=== PATIENT | female | born 1960 | race African-American/Black ===

== ENCOUNTER 2018-02-04 08:13 | Outpatient (CLI) | payer OTHER | END 2018-02-04 08:14 | disposition home or self-care (01) | LOC: BICMAMMO 08:13 | PROVIDERS: ATTEND Family Medicine | DX: Z12.31 Encounter for screening mammogram for malignant neoplasm of breast (principal); R92.1 Mammographic calcification found on diagnostic imaging of breast | CPT/HCPCS: 77066; G0279 ==

== ENCOUNTER 2018-12-04 07:32 | Outpatient (CLI) | payer OTHER ==
--- NOTE | 2018-12-04 10:26 | MRI ---
MRI LUMBAR SPINE WITHOUT IV CONTRAST: HISTORY: M54.42, lumbago with sciatica, left. Chronic low back pain that radiates to the buttocks, groin, and both legs. FINDINGS: The conus medullaris region is unremarkable, terminating at L1-L2. Disk bulging/disk osteophytosis c hanges at T11-T12 and T12-L1 with moderate indention of the ventral thecal sac and mild canal stenosi s without overt cord compression. At L1-L2, mild disk bulging and very slight lateral recess narrowing. At L2-L3, significant ligament and facet hypertrophic changes with marked diffuse bulging with modera te-severe central canal and bilateral recess stenosis and bilateral foraminal stenosis. At L3-L4, there is severe disk bulging and ligament and facet hypertrophic changes with severe centra l canal, lateral recess, and foraminal stenosis. At L4-L5, again, severe disk bulging and ligament and facet hypertrophic changes with severe central canal, lateral recess, and bilateral foraminal stenosis. At L5-S1, mild disk bulging without significant central canal stenosis. Mild bilateral foraminal milady nosis. No significant abnormal marrow signal. IMPRESSION: Variable severity, up to severe, central canal, lateral recess, and foraminal stenosis, particularly at L2-L3, L3-L4, and L4-L5, as well as disk bulging changes at T11-T12 and T12-L1, as above. POS: [facility]
== END 2018-12-04 07:33 | disposition home or self-care (01) ==
LOC: BICMRI 07:32
PROVIDERS: ATTEND Family Medicine
DX: M51.16 Intervertebral disc disorders with radiculopathy, lumbar region (principal); G89.29 Other chronic pain; M48.061 Spinal stenosis, lumbar region without neurogenic claudication; M51.9 Unspecified thoracic, thoracolumbar and lumbosacral intervertebral disc disorder
CPT/HCPCS: 72148

== ENCOUNTER 2019-02-06 09:31 | Outpatient (CLI) | payer OTHER ==
--- NOTE | 2019-02-06 09:57 | MMO ---
Bilateral MAMMO Bilat Screen [facility]. CLINICAL HISTORY: Patient is 58 years old and is seen for screening. The patient has no family history of breast cancer. The patient has no personal history of cancer. The patient has a history of left Excisional Biopsy in 1996 - benign. VIEWS: The views performed were: bilateral craniocaudal with tomosynthesis and bilateral mediolateral oblique with tomosynthesis. FILMS COMPARED: The present examination has been compared to prior imaging studies performed at [facility] on 01/27/2016, 01/28/2016, 07/31/2016, 02/01/2017 and 02/04/2018. MAMMOGRAM FINDINGS: The breasts are heterogeneously dense, which could obscure a lesion on mammography. There are stable benign appearing calcifications seen in both breasts. There are no suspicious masses, suspicious calcifications, or new areas of architectural distortion. IMPRESSION: THERE IS NO MAMMOGRAPHIC EVIDENCE OF MALIGNANCY. A ROUTINE FOLLOW-UP MAMMOGRAM IN 1 YEAR IS RECOMMENDED. THE RESULTS OF THIS EXAM WERE SENT TO THE PATIENT. ACR BI-RADS Category 2 - Benign finding MAMMOGRAPHY NOTE: 1. A negative mammogram report should not delay a biopsy if a dominant of clinically suspicious mass is present. 2. Approximately 10% to 15% of breast cancers are not detected by mammography. 3. Adenosis and dense breasts may obscure an underlying neoplasm.
== END 2019-02-06 09:32 | disposition home or self-care (01) ==
LOC: BICMAMMO 09:31
PROVIDERS: ATTEND Family Medicine
DX: Z12.31 Encounter for screening mammogram for malignant neoplasm of breast (principal)
CPT/HCPCS: 77063; 77067

== ENCOUNTER 2020-02-11 09:33 | Outpatient (CLI) | payer OTHER ==
--- NOTE | 2020-02-11 10:07 | MMO ---
Bilateral MAMMO Bilat Screen [facility]. CLINICAL HISTORY: Patient is 59 years old and is seen for screening. The patient has no family history of breast cancer. The patient has no personal history of cancer. The patient has a history of left Excisional Biopsy in 1996 - benign. VIEWS: The views performed were: bilateral craniocaudal with tomosynthesis and bilateral mediolateral oblique with tomosynthesis. FILMS COMPARED: The present examination has been compared to prior imaging studies performed at [facility] on 07/31/2016, 02/01/2017, 02/04/2018 and 02/06/2019. This study has been interpreted with the assistance of computer-aided detection. MAMMOGRAM FINDINGS: The breasts are heterogeneously dense, which could obscure a lesion on mammography. There are stable benign appearing calcifications seen in both breasts. There are no suspicious masses, suspicious calcifications, or new areas of architectural distortion. IMPRESSION: THERE IS NO MAMMOGRAPHIC EVIDENCE OF MALIGNANCY. A ROUTINE FOLLOW-UP MAMMOGRAM IN 1 YEAR IS RECOMMENDED. THE RESULTS OF THIS EXAM WERE SENT TO THE PATIENT. ACR BI-RADS Category 2 - Benign finding MAMMOGRAPHY NOTE: 1. A negative mammogram report should not delay a biopsy if a dominant of clinically suspicious mass is present. 2. Approximately 10% to 15% of breast cancers are not detected by mammography. 3. Adenosis and dense breasts may obscure an underlying neoplasm. Reported by: RENETTA RAJPUT MD Electonically Signed: [id number]
== END 2020-02-11 09:34 | disposition home or self-care (01) ==
LOC: BICMAMMO 09:33
PROVIDERS: ATTEND Family Medicine
DX: Z12.31 Encounter for screening mammogram for malignant neoplasm of breast (principal); Z91.89 Other specified personal risk factors, not elsewhere classified
CPT/HCPCS: 77063; 77067

== ENCOUNTER 2020-12-22 07:57 | Outpatient (CLI) | payer OTHER | END 2020-12-22 07:58 | disposition home or self-care (01) | LOC: TBSIIMAG 07:57 | PROVIDERS: ATTEND Neurological Surgery | DX: M47.26 Other spondylosis with radiculopathy, lumbar region (principal) | CPT/HCPCS: 72148 ==

== ENCOUNTER 2021-01-25 15:31 | Outpatient (CLI) | payer OTHER ==
[2021-01-26 07:38] LABS: SARS-CoV-2 PCR by NAA Not Detected (NotDetected)
== END 2021-01-25 15:32 | disposition home or self-care (01) ==
LOC: LABBT 15:31
PROVIDERS: ATTEND Neurological Surgery
DX: Z01.818 Encounter for other preprocedural examination (principal); Z20.822 Contact with and (suspected) exposure to COVID-19; M48.061 Spinal stenosis, lumbar region without neurogenic claudication
CPT/HCPCS: 87635; 93005; 93010; U0003; U0005

== ENCOUNTER 2021-01-28 05:30 | Day surgery (SDC) | payer OTHER ==
[2021-01-27 11:06] VITALS: BMI 34.7
[2021-01-28] MEDS ORDERED: Midazolam HCl 2 mg/2 ml Vial ONE (08:13)
[2021-01-28] MEDS ORDERED: Bupivacaine PF 0.5% 30 ML VIAL ONE (08:26)
[2021-01-28] MEDS ORDERED: EPINEPHrine 1 MG/ML AMP ONE (08:26)
[2021-01-28] MEDS ORDERED: Fentanyl 100 MCG/2 ML VIAL ONE ×4 (09:11→11:58)
[2021-01-28] MEDS ORDERED: Dexamethasone 20 MG/5 ML VIAL ONE (09:27)
[2021-01-28] MEDS ORDERED: Ondansetron PF 4 MG/2 ML Vial ONE (09:27)
[2021-01-28] MEDS ORDERED: Rocuronium Bromide 10 MG/ML (10ML VIAL) ONE (09:27)
[2021-01-28] MEDS ORDERED: ePHEDrine Sulfate 50 MG/10 ML VIAL ONE (09:27)
[2021-01-28] MEDS ORDERED: PROPOFOL 200 MG/20 ML VIAL ONE (09:27)
[2021-01-28] MEDS ORDERED: Ketorolac Tromethamine 30 MG/ML VIAL ONE (09:27)
[2021-01-28] MEDS ORDERED: Glycopyrrolate 0.2 MG/ML 5 ML SYRINGE ONE (09:27)
[2021-01-28] MEDS ORDERED: Lidocaine 1% PF 5 ML VIAL ONE (09:27)
[2021-01-28] MEDS ORDERED: HYDROcodone/Acetaminophen 5/325 mg Tablet ONE (12:02)
== END 2021-01-28 15:45 | disposition home or self-care (01) ==
LOC: SDC 05:30
PROVIDERS: ATTEND Neurological Surgery
PROC: 01NB0ZZ Release Lumbar Nerve, Open Approach (ICD-10-PCS; principal; 2021-01-28)
DX: M48.062 Spinal stenosis, lumbar region with neurogenic claudication (principal); M54.16 Radiculopathy, lumbar region; E78.00 Pure hypercholesterolemia, unspecified; G89.29 Other chronic pain; E11.9 Type 2 diabetes mellitus without complications; I10 Essential (primary) hypertension; M19.90 Unspecified osteoarthritis, unspecified site; F17.210 Nicotine dependence, cigarettes, uncomplicated; Z79.899 Other long term (current) drug therapy; Z88.1 Allergy status to other antibiotic agents; Z88.8 Allergy status to other drugs, medicaments and biological substances
CPT/HCPCS: 76000; J0171; J0690; J1100; J1885; J2250; J2405; J2704; J3010; S0020

== ENCOUNTER 2021-02-14 08:37 | Outpatient (CLI) | payer OTHER | END 2021-02-14 08:38 | disposition home or self-care (01) | LOC: BICMAMMO 08:37 | PROVIDERS: ATTEND Family Medicine | DX: Z12.31 Encounter for screening mammogram for malignant neoplasm of breast (principal); Z91.89 Other specified personal risk factors, not elsewhere classified | CPT/HCPCS: 77063; 77067 ==

== ENCOUNTER 2021-03-18 13:05 | Outpatient (CLI) | payer OTHER | END 2021-03-18 13:06 | disposition home or self-care (01) | LOC: BICULT 13:05 | PROVIDERS: ATTEND Family Medicine | DX: E04.1 Nontoxic single thyroid nodule (principal) | CPT/HCPCS: 76536 ==

== ENCOUNTER 2021-06-21 13:20 | Outpatient (CLI) | payer OTHER | END 2021-06-21 13:21 | disposition home or self-care (01) | LOC: TBSIIMAG 13:20 | PROVIDERS: ATTEND Neurological Surgery | DX: M48.062 Spinal stenosis, lumbar region with neurogenic claudication (principal); Z98.890 Other specified postprocedural states | CPT/HCPCS: 72158 ==

== ENCOUNTER 2021-07-29 12:06 | Outpatient (CLI) | payer OTHER ==
[2021-07-29 12:53] LABS: Anion Gap 13 mmol/L (10-20); BUN (Urea Nitrogen) 14 mg/dL (9.8-20.1); Calc. Creatinine Clearance 0 mL/min (70-130); Calcium 9.1 mg/dL (7.8-10.44); Carbon Dioxide 29 mmol/L (23-31); Chloride 100 mmol/L (98-107); Glucose 88 mg/dL (80-115); Potassium 3.4 mmol/L (3.5-5.1); Sodium 139 mmol/L (136-145)
[2021-07-30 00:36] LABS: SARS-CoV-2 PCR by NAA Not Detected (NotDetected)
== END 2021-07-29 12:07 | disposition home or self-care (01) ==
LOC: LABBT 12:06
PROVIDERS: ATTEND Neurological Surgery
DX: Z01.812 Encounter for preprocedural laboratory examination (principal); M48.061 Spinal stenosis, lumbar region without neurogenic claudication; Z20.822 Contact with and (suspected) exposure to COVID-19
CPT/HCPCS: 80048; U0003; U0005

== ENCOUNTER 2021-08-03 07:17 | Day surgery (SDC) | payer OTHER ==
[2021-08-02 11:56] VITALS: BMI 35.0
[2021-08-03] MEDS ORDERED: ceFAZolin 2 GM/DEX 5% 100 ML BAG ONE ×2 (07:59→14:01)
[2021-08-03] MEDS ORDERED: Thrombin 5000 UNITS/5 ML VIAL ONE (09:25)
[2021-08-03] MEDS ORDERED: EPINEPHrine 1 MG/ML AMP ONE (09:25)
[2021-08-03] MEDS ORDERED: Bupivacaine PF 0.5% 30 ML VIAL ONE (09:25)
[2021-08-03] MEDS ORDERED: Fentanyl 100 MCG/2 ML VIAL ONE ×2 (09:30→13:05)
[2021-08-03] MEDS ORDERED: Midazolam HCl 2 mg/2 ml Vial ONE (09:30)
[2021-08-03] MEDS ORDERED: HYDROmorphone 0.5 MG/0.5 ML SYRINGE ONE (09:30)
[2021-08-03] MEDS ORDERED: PROPOFOL 200 MG/20 ML VIAL ONE (09:41)
[2021-08-03] MEDS ORDERED: Glycopyrrolate 0.2 MG/ML 5 ML SYRINGE ONE (09:41)
[2021-08-03] MEDS ORDERED: Ketorolac Tromethamine 30 MG/ML VIAL ONE (09:41)
[2021-08-03] MEDS ORDERED: Lidocaine 1% PF 5 ML VIAL ONE (09:41)
[2021-08-03] MEDS ORDERED: Rocuronium Bromide 10 MG/ML (10ML VIAL) ONE (09:41)
[2021-08-03] MEDS ORDERED: Ondansetron PF 4 MG/2 ML Vial ONE (09:41)
[2021-08-03] MEDS ORDERED: Dexamethasone 20 MG/5 ML VIAL ONE (09:41)
[2021-08-03] MEDS ORDERED: SUGAMMADEX SODIUM 200 MG/2 ML VIAL ONE (11:06)
[2021-08-03] MEDS ORDERED: Labetalol HCl 100 MG/20 ML VIAL ONE (11:29)
[2021-08-03] MEDS ORDERED: HYDROmorphone 2 MG/ML VIAL ONE (11:30)
[2021-08-03] MEDS ORDERED: HYDROcodone/Acetaminophen 5/325 mg Tablet ONE (14:01)
== END 2021-08-03 15:05 | disposition home or self-care (01) ==
LOC: SDC 07:17
PROVIDERS: ATTEND Neurological Surgery
PROC: 01NB0ZZ Release Lumbar Nerve, Open Approach (ICD-10-PCS; principal; 2021-08-03)
DX: M48.062 Spinal stenosis, lumbar region with neurogenic claudication (principal); M54.16 Radiculopathy, lumbar region; E78.00 Pure hypercholesterolemia, unspecified; G89.29 Other chronic pain; E11.9 Type 2 diabetes mellitus without complications; I10 Essential (primary) hypertension; M19.90 Unspecified osteoarthritis, unspecified site; F17.210 Nicotine dependence, cigarettes, uncomplicated; Z79.899 Other long term (current) drug therapy; Z88.1 Allergy status to other antibiotic agents; Z88.8 Allergy status to other drugs, medicaments and biological substances
CPT/HCPCS: 76000; J0171; J1100; J1170; J1885; J2250; J2405; J2704; J3010; S0020

== ENCOUNTER 2021-12-30 06:00 | Day surgery (SDC) | payer OTHER ==
[2021-12-27 12:04] VITALS: BMI 35.5
== END 2021-12-30 16:20 | disposition home or self-care (01) ==
LOC: SDC 06:00
PROVIDERS: ATTEND Neurological Surgery
PROC: 0SG1070 Fusion of 2 or more Lumbar Vertebral Joints with Autologous Tissue Substitute, Anterior Approach, Anterior Column, Open Approach (ICD-10-PCS; principal; 2021-12-30)
PROC: 0SG10A0 Fusion of 2 or more Lumbar Vertebral Joints with Interbody Fusion Device, Anterior Approach, Anterior Column, Open Approach (ICD-10-PCS; principal; 2021-12-30)
DX: M43.16 Spondylolisthesis, lumbar region (principal); M48.061 Spinal stenosis, lumbar region without neurogenic claudication; E78.00 Pure hypercholesterolemia, unspecified; G89.4 Chronic pain syndrome; E11.9 Type 2 diabetes mellitus without complications; H40.9 Unspecified glaucoma; I10 Essential (primary) hypertension; Z79.899 Other long term (current) drug therapy; Z88.1 Allergy status to other antibiotic agents; Z88.8 Allergy status to other drugs, medicaments and biological substances; Z87.891 Personal history of nicotine dependence
CPT/HCPCS: 76000; C1713; J0171; J0690; J1170; J2370; J3010; S0020

== ENCOUNTER 2024-04-30 10:26 | Outpatient (CLI) | payer OTHER | END 2024-04-30 10:27 | disposition home or self-care (01) | LOC: BICMAMMO 10:26 | PROVIDERS: ATTEND Family Medicine | DX: Z12.31 Encounter for screening mammogram for malignant neoplasm of breast (principal); Z91.89 Other specified personal risk factors, not elsewhere classified | CPT/HCPCS: 77063; 77067 ==

== ENCOUNTER 2025-07-16 09:40 | Outpatient (CLI) | payer MEDICARE | END 2025-07-16 09:41 | disposition home or self-care (01) | LOC: BICMAMMO 09:40 | PROVIDERS: ATTEND Family Medicine | DX: Z12.31 Encounter for screening mammogram for malignant neoplasm of breast (principal); N64.89 Other specified disorders of breast; Z91.89 Other specified personal risk factors, not elsewhere classified | CPT/HCPCS: 77063; 77067 ==